=== PATIENT | male | born 1990 | race Two or more races ===

== ENCOUNTER 2025-07-16 11:09 | Emergency (ER) | payer MEDICAID ==
[~2025-07-16] VITALS: Ht 170.2 cm; Wt 68.4 kg
--- NOTE | 2025-07-16 12:03 | DVH ---
CLINICAL INDICATION: fall/pain TECHNIQUE: XY L SHOULDER 2+ VIEW XRAY Comparison: None FINDINGS/IMPRESSION: No acute fracture identified. Elevation of the right distal clavicle from the acromion by at least 1.8 cm, suggestive of ligamentou s injury.
[2025-07-16 12:21] VITALS: BP 145/82; PULSE 73; RESP 16; TEMP 98.4
[2025-07-16 12:22] VITALS: O2SAT 99
[2025-07-16] MEDS: HYDROcodone-ACET 5/325MG TAB PO ONE (12:23)
--- NOTE | 2025-07-16 12:48 | ED.PDOC ---
Back pain HPI HPI Comments HPI: Ananda 35 y.o male presents to the ED for a chief complaint of left shoulder pain s/p slip and fall 2 days ago. Patient presents with an arm sling. He is uncooperative with providing information regarding his injury, states he needs his collar bone popped in. Smell of ETOH upon presentation. He is a poor historian. Past Medical History: Denies Past Surgical History: Denies Social History: Unknown Medications: Denies Allergies: Denies ananda. HPI: Poor Historian. Patient's smells like alcohol. Patient is very elusive and refuses to answer most questions at does not want explained to us the mechanism of injury and what happened exactly. He denies any other injuries or any pain anywhere else in his body except left shoulder. He has some normal range of motion of the left upper extremity with some pain. REVIEW OF SYSTEMS: CONSTITUTIONAL: Denies acute: fever, diaphoresis, chills, generalized weakness. HEAD: Denies acute: headache, photophobia Eyes: Denies acute: Double vision, vision loss, eye pain, eye discharge. EARS: Denies acute: tinnitus, hearing loss, ear discharge, ear pain, THROAT: Denies acute: sore throat, swelling, difficulty swallowing , pain with swallowi ng, change in voice. NECK: Denies acute: neck pain, neck swelling, stiff neck. HEART: Denies acute : chest pain, palpitations, LUNGS: Denies acute: SOB, wheezing, cough, hemoptysis ABDOMEN: Denies acute: abdominal pain, Nausea, Vomiting, diarrhea, melena , hematemesis, hematochezia SKIN: Denies acute: rash, redness, lesions, itchiness. EXTREMITIES: Denies acute: calf pain, numbness, tingling, weakness, denies pain in extremity. Denies acute: Low back pain. Neuro: Denies acute: focal neurological deficit, motor or sensory focal neurological deficit, tremors, seizure like activity, confusion, dizziness, change in mental status, loss of bowel or bladder function, cauda equina like symptoms. : Denies acute: dysuria, hematuria, flank pain, increase in urinary frequency. PSYCH: Denies acute: hallucination, suicidal ideation, homicidal ideation. FEMALE: Denies acute: abnormal vaginal bleeding, foul odor, unusual discharge. PHYSICAL EXAM: General: -----mild---acute distress, awake and alert. Head: normocephalic, atraumatic. Neck: supple, trachea is midline, no swelling. Throat: Normal phonation. Eyes:, no erythema, no purulent discharge, no proptosis, no icterus. Heart: regular rate, regular rhythm, no significant murmur appreciated. Lungs: no apparent respiratory distress, Able to speak in full sentences. No wheezing, no rhonchi, no crackles. No stridors Clear to auscultation bilaterally. Abdomen: non tender to palpation, non distended, soft, no guarding, no rebound, + bowel sounds. Neuro: Awake, Alert, oriented to name, self, situation, follows commands GCS=15. Speech is normal. Skin: no petechia, no purpura, no cyanosis, non-pale, not jaundice. Lower extremities: --no - Pitting edema no deformity, no focal swelling, no calf TTP. Makes eye contact. moves all four extremities. Minimal decrease of left upper extremity range of motion secondary to left shoulder pain. Noted left shoulder mild bruise contusion. Patient is neurovascularly intact in the affected left upper extremity. Radial pulses palpable. Good smearer muscle. No crepitus. Face: no apparent facial droop. Ambulating in the ED independently. No nuchal rigidity, Kernig's sign, Brudzinski's sign, no meningeal signs. ED COURSE: DISCLAIMER: This medical document was created using an electronic medical record system with voice recognition software and computerized dictation system. Although this document has been carefully reviewed, there might still be some phonetic and typographical errors. Occasional wrong-word or "sound-alike" substitutions may have occurred due to the inherent limitations of voice recognition software. These areas are purely typographical due to imperfections of the software programs and do not reflect any compromise in the patient's medical care. Please read the chart carefully and recognize, using context, where these substitutions have occurred. Chief Complaint: Upper Extremity Time Seen by MD: 12:42 Reviewed Notes: Allergies Allergies: Coded Allergies: NO KNOWN ALLERGIES (Unverified , 07/16/25) Information Source: Patient Mode of Arrival: Ambulatory Past Medical History PAST MEDICAL HISTORY: Denies Surgical History: Denies all surgeries Family History Family History: Reviewed,noncontributory to illness Social History Smoker: Non-Smoker Alcohol: Denies ETOH Use Drugs: Denies Drug Use Lives In: Home Was a procedure done? Was a procedure done?: No Back Pain Differential Dx Differential Diagnosis: Fracture, Musculoskeletal Pain, Other (strain, sprain, dislocation , neurovascular injury) X-Ray, Labs, Meds, VS Vital Signs Date Time Temp Pulse Resp B/P (MAP) Pulse Ox O2 Delivery O2 Flow Rate FiO2 07/16/25 12:22 99 Room Air* 0 21 07/16/25 12:21 98.4 73 16 145/82 (103) 98 98.4 07/16/25 11:15 97.7 70 18 145/95 98 97.7 [place] [address] Ph: [phone] DIAGNOSTIC IMAGING Diagnostic Imaging Report : [id number] Signed with Addenda PATIENT: TAMMY RIVERA ACCT: [id number] UNIT: [id number] : 1990 LOC: ER ROOM / BED: / AGE / SEX: 35 / M ADM STATUS: REG ER SERVICE 1120 ORDERING PHYSICIAN: ALLYN FERRARA DO PROCEDURE(s): LSHD2 - L SHOULDER 2+ VIEW XRAY REASON: fall/pain ORDER NUMBER(s): [id number], ACCESSION NUMBER(s): [id number] ADDENDUM ADDENDUM # 1 CLINICAL INDICATION: fall/pain TECHNIQUE: XY L SHOULDER 2+ VIEW XRAY Comparison: None FINDINGS/IMPRESSION: No acute fracture identified. Elevation of the left distal clavicle from the acromion by at least 1.8 cm, suggestive of ligamentous injury. ORIGINAL REPORT CLINICAL INDICATION: fall/pain TECHNIQUE: XY L SHOULDER 2+ VIEW XRAY Comparison: None FINDINGS/IMPRESSION: No acute fracture identified. Elevation of the right distal clavicle from the acromion by at least 1.8 cm, suggestive of ligamentous injury. ATED BY: CORWIN ELLER MD DICTATED DATE/TIME: 07/16/251317 SIGNED BY: CORWIN ELLER MD SIGNED DATE/TIME: 07/16/251317 CC: CLINICAL INDICATION: fall/pain TECHNIQUE: XY L SHOULDER 2+ VIEW XRAY Comparison: None FINDINGS/IMPRESSION: No acute fracture identified. Elevation of the right distal clavicle from the acromion by at least 1.8 cm, suggestive of ligamentous injury. ATED BY: CORWIN ELLER MD DICTATED DATE/TIME: 07/16/251200 SIGNED BY: CORWIN ELLER MD SIGNED DATE/TIME: 07/16/251200 CC: Time of 1ST Reevaluation: 12:44 (Orthopedic surgery was consulted at this time) Reevaluation 1ST: Unchanged Time of 2ND Reevaluation: 15:15 (Case discussed with the orthopedic surgeon on- call Dr. Levine. He reviewed the imaging studies. Recommends outpatient follow up in his office this Friday and for the shoulder. No other recommendations. Patient is neurovascularly intact in the affected extremity.) Patient Education/Counseling: Diagnosis, Treatment Family Education/Counseling: No Family Present Comments MDM: patient presented with the above HPI.---shoulder injury---workup was initiated. patient was found with the above mentioned diagnosis. the following medications were ordered: please refer to order lists of meds and tests obtained by myself Dr. Ferrara. Patient ED course and VS have been stabilized. Patient has been reassessed in the ED and remained in a stable condition. Pertinent incidental findings were discussed with the patient and/or family. Patient/family voices understanding and is agreeable with plan. Patient has been observed in the ED adequate length of time to insure improvement/stability. Escalation of care considered: Consideration of escalation to observation or admission Orthopedic surgery was consulted. Patient was DISCHARGED home in a stable condition. All the reports of any imaging studies that were ordered by myself were reviewed by myself. Departure 1 Departure Time of Disposition: 15:14 Impression: Primary Impression: AC joint dislocation Disposition: 01 HOME / SELF CARE / HOMELESS Condition: Stable Additional Instructions: Additional instructions: Please read all instructions provided in this packet carefully. You MUST follow-up with your primary care/family doctor in 1 to 2 days. If you are unable to see your primary care/family doctor, please return to our emergency room for re-assessment and re-evaluation in 1 to 2 days. Return to the emergency room here in our facility or to the nearest ER [facility] if your symptoms change or worsen. CONSULTATIONS: you MUST Follow-up for consultation as soon as possible with: Dr.-Dr. Levine orthopedic surgeon in our hospital this coming Friday. Please go to the office directly. You MUST call the consultants office yourself to make an appointment. You may need to arrange that through your insurance and/or your primary/family doctor. If you are unable to see the budget consultant in 1 to 2 days, you must return to our emergency room (or any other ER of your choice) for re-assessment and re- evaluation. Adequate fluid hydration. Although you have been discharged from the Emergency Department, this does not mean that you have a "clean bill of health". No definitive diagnosis for your symptoms has been made today. It is possible that you are in the process of developing a serious illness. This is why you must return to the ED without fail if any new or worsening symptoms develop. Below is a copy of your radiological report for follow up: [place] [address] Ph: [phone] DIAGNOSTIC IMAGING Diagnostic Imaging Report : [id number] Signed with Steffany PATIENT: TAMMY RIVERA ACCT: [id number] UNIT: [id number] : 1990 LOC: ER ROOM / BED: / AGE / SEX: 35 / M ADM STATUS: REG ER SERVICE 1120 ORDERING PHYSICIAN: ALLYN FERRARA DO PROCEDURE(s): LSHD2 - L SHOULDER 2+ VIEW XRAY REASON: fall/pain ORDER NUMBER(s): [id number], ACCESSION NUMBER(s): [id number] ADDENDUM ADDENDUM # 1 CLINICAL INDICATION: fall/pain TECHNIQUE: XY L SHOULDER 2+ VIEW XRAY Comparison: None FINDINGS/IMPRESSION: No acute fracture identified. Elevation of the left distal clavicle from the acromion by at least 1.8 cm, suggestive of ligamentous injury. ORIGINAL REPORT CLINICAL INDICATION: fall/pain TECHNIQUE: XY L SHOULDER 2+ VIEW XRAY Comparison: None FINDINGS/IMPRESSION: No acute fracture identified. Elevation of the right distal clavicle from the acromion by at least 1.8 cm, suggestive of ligamentous injury. ATED BY: CORWIN ELLER MD DICTATED DATE/TIME: 07/16/258 SIGNED BY: CORWIN ELLER MD SIGNED DATE/TIME: 07/16/25 1318 CC: CLINICAL INDICATION: fall/pain TECHNIQUE: XY L SHOULDER 2+ VIEW XRAY Comparison: None FINDINGS/IMPRESSION: No acute fracture identified. Elevation of the right distal clavicle from the acromion by at least 1.8 cm, suggestive of ligamentous injury. ATED BY: CORWIN ELLER MD DICTATED DATE/TIME: 07/16/25 120 SIGNED BY: CORWIN ELLER MD SIGNED DATE/TIME: 07/16/25 120 CC: Discharged With: Self Critical Care Note Critical Care Time?: No I personally scribed for ALLYN FERRARA DO ([email or web address]) on 07/16/25 at 12:48. Electronically submitted by Karen Rawls ([facility]). I personally scribed for ALLYN FERRARA DO ([email or web address]) on 07/16/25 at 15:13. Electronically submitted by Karen Rawls ([facility]). ALLYN FERRARA DO Jul 16, 2025 12:48
[2025-07-16] MEDS ORDERED: KETOROLAC TROMETH 30 MG/ML 1ML VIAL IM ONE (16:15)
[2025-07-16] MEDS ORDERED: HYDROcodone-ACET 5/325MG TAB PO ONE (16:15)
== END 2025-07-16 15:16 | disposition home or self-care (01) ==
LOC: ER 11:12
DX: S43.102A Unspecified dislocation of left acromioclavicular joint, initial encounter (principal); Z79.899 Other long term (current) drug therapy; X58.XXXA Exposure to other specified factors, initial encounter; Y93.89 Activity, other specified; Y92.89 Other specified places as the place of occurrence of the external cause; Y99.8 Other external cause status
CPT/HCPCS: 73030; 99283; J1885